=== PATIENT | female | born 1995 | race Caucasian/White ===

== ENCOUNTER → 2016-09-03 | Outpatient (CLI) | payer OTHER | END | disposition home or self-care (01) | LOC: C.PAPS 08:45 | PROVIDERS: ATTEND Obstetrics & Gynecology | DX: Z12.4 Encounter for screening for malignant neoplasm of cervix (principal) ==

== ENCOUNTER → 2016-09-03 | Outpatient (CLI) | payer OTHER ==
[2016-09-03 16:33] LABS: BASO % 0.2 %; BASO ABS # 0.02 K/uL (0-0.2); COMPLETE YES; EOS % 0.5 %; HEMATOCRIT 39.7 % (37-47); IG% 0.3 %; LYMPH % 21.1 %; LYMPH ABS # 2.09 K/uL (1.2-3.4); MEAN CELL VOLUME 85.6 fL (80-100); MEAN CORPUSCULAR HEMOGLOBIN 28.9 pg (25-34); MEAN CORPUSCULAR HGB CONC 33.8 g/dl (32-36); MEAN PLATELET VOLUME 9.7 fL (7.4-10.4); MONO % 4.9 %; PLATELET COUNT 274 K/uL (130-400); RED BLOOD COUNT 4.64 M/uL (4.2-5.4); WHITE BLOOD COUNT 9.91 K/uL (4.8-10.8)
[2016-09-03 18:11] LABS: URINE APPEARANCE CLEAR (CLEAR); URINE BILIRUBIN NEG (NEG); URINE COLOR YELLOW; URINE EPITHELIAL CELL AUTO >30 /lpf (0-5); URINE NITRITE NEG (NEG); URINE PH 6.5 (4.5-7.5); UROBILINOGEN NEG (NEG)
[2016-09-03 18:14] LABS: MANUAL MICROSCOPIC REQUIRED? NO; REVIEW REQ? NO
[2016-09-06 08:33] LABS: CHLAMYDIA TRACH RNA*** NOT DETECTED (NOT DETECTED); GC (NEIS GONORRHOEAE)RNA** NOT DETECTED (NOT DETECTED)
== END | disposition home or self-care (01) ==
LOC: C.LAB1850 15:24
PROVIDERS: ATTEND Obstetrics & Gynecology
DX: Z34.00 Encounter for supervision of normal first pregnancy, unspecified trimester (principal)

== ENCOUNTER → 2016-10-07 | Outpatient (CLI) | payer OTHER ==
[2016-10-07 18:32] LABS: GTGD 50 Grams
== END | disposition home or self-care (01) ==
LOC: C.LAB 17:22
PROVIDERS: ATTEND Obstetrics & Gynecology
DX: Z34.02 Encounter for supervision of normal first pregnancy, second trimester (principal)

== ENCOUNTER → 2016-10-20 | Outpatient (CLI) | payer OTHER | END | disposition home or self-care (01) | LOC: C.LABPVFM 15:05 | PROVIDERS: ATTEND Family Medicine | DX: J02.9 Acute pharyngitis, unspecified (principal) ==

== ENCOUNTER → 2017-01-04 | Outpatient (CLI) | payer OTHER ==
[2017-01-04 13:23] LABS: HEMATOCRIT 38.3 % (37-47)
[2017-01-04 14:28] LABS: URINE APPEARANCE CLOUDY (CLEAR); URINE BILIRUBIN NEG (NEG); URINE COLOR YELLOW; URINE EPITHELIAL CELL AUTO >30 /lpf (0-5); URINE NITRITE NEG (NEG); URINE PH 8.5 (4.5-7.5); URINE SPECIFIC GRAVITY 1.015 (1.000-1.030); UROBILINOGEN NEG (NEG)
[2017-01-04 14:31] LABS: MANUAL MICROSCOPIC REQUIRED? NO; REVIEW REQ? YES
[2017-01-04 15:14] LABS: GTGD 50 Grams
== END | disposition home or self-care (01) ==
LOC: C.LAB1850 11:36
PROVIDERS: ATTEND Obstetrics & Gynecology
DX: Z34.02 Encounter for supervision of normal first pregnancy, second trimester (principal)

== ENCOUNTER → 2017-03-03 | Outpatient (CLI) | payer OTHER | END | disposition home or self-care (01) | LOC: C.LABSPEC 16:14 | PROVIDERS: ATTEND Obstetrics & Gynecology | DX: Z34.03 Encounter for supervision of normal first pregnancy, third trimester (principal) ==

== ENCOUNTER 2017-03-28 00:19 | Inpatient (IN) | payer OTHER ==
[~2017-03-28] VITALS: Ht 170.2 cm; Wt 99.1 kg
[2017-03-28] MEDS ORDERED: LACTATED RINGER'S 1000ML 1,000 ML IV PRN (03:36)
[2017-03-28] MEDS ORDERED: LACTATED RINGER'S 1000ML 1,000 ML IV SCH (03:36)
[2017-03-28] MEDS ORDERED: PENICILLIN G POTASSIUM IV 6 MU in DEXTROSE 5% 250ML 250 ML IV ONE (03:45)
[2017-03-28] MEDS ORDERED: PENICILLIN G POTASSIUM IV 3 MU in DEXTROSE 5% 100ML 100 ML IV PRN (03:45)
[2017-03-28 04:15] LABS: HEMATOCRIT 38.1 % (37-47); MEAN CELL VOLUME 89.4 fL (80-100); MEAN CORPUSCULAR HEMOGLOBIN 31.2 pg (25-34); MEAN CORPUSCULAR HGB CONC 34.9 g/dl (32-36); MEAN PLATELET VOLUME 10.1 fL (7.4-10.4); PLATELET COUNT 233 K/uL (130-400); RED BLOOD COUNT 4.26 M/uL (4.2-5.4); WHITE BLOOD COUNT 13.57 K/uL (4.8-10.8)
[2017-03-28] MEDS ORDERED: PRENTAB26 PO (04:15)
[2017-03-28] MEDS ORDERED: BUPIVACAINE 0.25% 30 ML VIAL ONE (04:17)
[2017-03-28] MEDS ORDERED: EpHEDrine SULFATE INJ 50 MG/ML AMP ONE (04:17)
[2017-03-28] MEDS ORDERED: FENTANYL 2MCG/ML ROPIV 1.25MG/ML 100ML BAG EPI ONE (04:18)
[2017-03-28] MEDS ORDERED: FENTANYL CITRATE INJ 50 MCG/1 ML 2 ML VIAL ONE (04:18)
[2017-03-28] MEDS ORDERED: LACTATED RINGER'S 1000ML 500 ML IV PRN (04:34)
[2017-03-28] MEDS ORDERED: NALOXONE HCL INJ 1 MG in SODIUM CHLORIDE 0.9% 1000ML 1,000 ML IV PRN (04:34)
[2017-03-28] MEDS ORDERED: FENTANYL 2MCG/ML ROPIV 1.25MG/ML 100ML BAG EPI PRN (04:45)
[2017-03-28] MEDS ORDERED: ONDANSETRON INJ 2 MG/ML 2 ML VIAL IV PRN (04:45)
[2017-03-28] MEDS ORDERED: DiphenhydrAMINE HCL 50 MG/ML VIAL IV PRN (04:45)
[2017-03-28] MEDS ORDERED: NALBUPHINE HCL INJ 10 MG/ML AMP IV PRN (04:45)
[2017-03-28] MEDS ORDERED: NALOXONE HCL INJ 0.4 MG/1 ML VIAL/CARP IV PRN (04:45)
[2017-03-28] MEDS ORDERED: PROMETHAZINE HCL INJ 25 MG in SODIUM CHLORIDE 0.9% 50ML 50 ML IV PRN (04:45)
[2017-03-28] MEDS ORDERED: EpHEDrine SULFATE INJ 50 MG/ML AMP IV PRN (04:45)
[2017-03-28 05:29] VITALS: Ht 170.2 cm; Wt 99.1 kg
[2017-03-28] MEDS ORDERED: CALC500C3 (06:08)
[2017-03-28] MEDS ORDERED: OXYTOCIN 30 UNITS/500ML NSS IV ONE (09:12)
[2017-03-28] MEDS ORDERED: ACETAMINOPHEN 325 MG TAB PO PRN (09:45)
[2017-03-28] MEDS ORDERED: LANOLIN OINT EXT PRN ×2 (09:45)
[2017-03-28] MEDS ORDERED: OXYTOCIN 30 UNITS/500ML NSS IV PRN (09:45)
[2017-03-28] MEDS ORDERED: OXYCODONE/ACETAMINOPHEN 5-325 TAB PO PRN (09:45)
[2017-03-28] MEDS ORDERED: BENZOCAINE 20% AER SPR 82.5 GM CAN EXT PRN (09:45)
[2017-03-28] MEDS ORDERED: SUPERCREAM 0.870 % 15GM JAR EXT PRN (09:45)
--- NOTE | 2017-03-28 09:54 | Anesthesia Procedure Note ---
Anesthesia Epidural Removal Nt Date & Time Mar 28, 2017 at 09:54 Vital Signs Pain Intensity: 0.0 Notes Mental Status: alert / awake / arousable, participated in evaluation Nausea / Vomiting: adequately controlled Pain: adequately controlled Airway Patency, RR, SpO2: stable & adequate BP & HR: stable & adequate Hydration State: stable & adequate Neuraxial Anesthesia: was administered Anesthetic Complications: no major complications apparent, pt satisfied with anesthetic care Epidural: removed without complications, with tip intact
--- NOTE | 2017-03-28 13:51 | DELIVERY SUMMARY ---
DATE OF OPERATION: 03/28/2017 TopofForm The patient is a 21-year-old 1 para 0 white female, EDC of 03/25/2017 who presented in active labor. She progressed to full dilation and at that point membranes were ruptured for clear fluid. Thin meconium was noted when she started to push. She pushed effectively through several contractions for delivery of a viable male . Mouth and nasopharynx were suctioned on the perineum and the rest of the infant delivered easily and was placed on the mother's abdomen. There was vigorous cry and the infant was moving all 4 limbs. The cord was then clamped after approximately 30 seconds. Placenta was expressed intact with a 3-vessel cord. A first degree vaginal laceration and a first degree right labial laceration were repaired with 3-0 chromic in usual fashion. A left labial abrasion was not bleeding and therefore not repaired. Estimated blood loss was 300 mL. Mother and were doing well after delivery.BottomofForm I attest to the content of the Intraoperative Record and any orders documented therein. Any exceptions are noted below. MTDD
[2017-03-28 14:42] VITALS: BP 118/59; PULSE 60; TEMP 36.8
[2017-03-28 15:15] VITALS: BP 111/73; PULSE 50; TEMP 36.9
[2017-03-28 19:24] VITALS: BP 136/83; PULSE 65; TEMP 36.5
[2017-03-28] MEDS: DOCUSATE SODIUM 100 MG CAP PO SCH (19:41)
[2017-03-28 23:10] VITALS: BP 117/69; PULSE 63; TEMP 36.7; O2SAT 98
[2017-03-29 03:55] VITALS: BP 119/72; PULSE 57; TEMP 36.7; O2SAT 98
[2017-03-29 06:47] LABS: HEMATOCRIT 33.7 % (37-47)
[2017-03-29 07:18] VITALS: BP 123/75; PULSE 60; TEMP 36.6; O2SAT 97
--- NOTE | 2017-03-29 07:48 | Progress Note ---
Subjective Mar 29, 2017. Subjective conversation w/ patient, physical exam Ambulation: ambulating normally Voiding: no voiding problems Passing Gas: Yes Diet Tolerance: Regular Diet Lochia: Moderate Feeding Type: Breast Feeding Review of Systems Constitutional: No fever, No chills, No sweats, No weight loss, No weakness, No fatigue, No problem reported Female : No see HPI, No dysuria, No urinary frequency, No hematuria, No incontinence, No abnormal vaginal bleeding, No vaginal discharge, No problem reported Objective Vital Signs Date Time Temp Pulse Resp B/P (MAP) Pulse Ox O2 Delivery O2 Flow Rate FiO2 03/29/17 07:18 36.6 60 20 123/75 (91) 97 Room Air 03/29/17 03:55 36.7 57 18 119/72 (88) 98 Room Air 03/28/17 23:10 36.7 63 18 117/69 (85) 98 Room Air 03/28/17 23:10 98 Room Air 03/28/17 19:24 36.5 65 18 136/83 (100) Room Air 03/28/17 15:15 36.9 50 20 111/73 (86) Room Air 03/28/17 15:15 Room Air 03/28/17 14:42 36.8 60 20 118/59 (78) Physical Exam General Appearance: WELL-APPEARING, NO APPARENT DISTRESS Abdomen: non tender, soft Fundus: Firm, Non-Tender, Relation to Umbilicus (1 below U) Extremities: no calf tenderness Laboratory Results Last 24 Hours Test 03/29/17 06:07 Hemoglobin 11.5 g/dL Hematocrit 33.7 % Assessment and Plan Day#: 1 Continue Routine Care: stable course GBS(+) continue current care plan
[2017-03-29] MEDS: DOCUSATE SODIUM 100 MG CAP PO SCH ×2 (07:52→19:37)
[2017-03-29] MEDS: PRENATAL VITAMIN TAB PO SCH (07:53)
[2017-03-29] MEDS: IBUPROFEN 600 MG TAB PO PRN ×2 (14:02→23:19)
[2017-03-29 15:35] VITALS: BP 111/73; PULSE 56; TEMP 36.7
[2017-03-29] MEDS ORDERED: BISACODYL 5 MG TABEC PO SCH (20:00)
[2017-03-29 23:15] VITALS: BP 119/72; PULSE 56; TEMP 36.8
--- NOTE | 2017-03-30 06:54 | OB/GYN Progress Note ---
[facility] Progress Note Date of Service Mar 30, 2017. Subjective conversation w/ patient, physical exam, chart review, lab review Ambulation: ambulating normally Voiding: no voiding problems Passing Gas: Yes Diet Tolerance: Regular Diet Lochia: Moderate Feeding Type: Breast Feeding Review of Systems Constitutional: No fever, No chills, No sweats Respiratory: No cough, No sputum, No wheezing, No shortness of breath, No dyspnea on exertion Cardiac: No chest pain, No edema, No palpitations Abdomen: No pain, No nausea, No vomiting, No diarrhea Female : No dysuria, No urinary frequency Objective Vital Signs Date Time Temp Pulse Resp B/P (MAP) Pulse Ox O2 Delivery O2 Flow Rate FiO2 03/29/17 23:15 36.8 56 16 119/72 (88) Room Air 03/29/17 23:15 Room Air 03/29/17 15:35 Room Air 03/29/17 15:35 36.7 56 16 111/73 (86) Room Air 03/29/17 07:55 Room Air 03/29/17 07:18 36.6 60 20 123/75 (91) 97 Room Air Physical Exam General Appearance: WELL-APPEARING, WD/WN, NO APPARENT DISTRESS Respiratory/Chest: chest non-tender, lungs clear, normal breath sounds, no respiratory distress, no accessory muscle use Cardiovascular: regular rate, rhythm, no edema, no murmur Abdomen: non tender, soft Fundus: Firm Extremities: no pedal edema, no calf tenderness Medications Current Inpatient Medications Medications (Trade) Dose Ordered Sig/Mike Route Start Time Stop Time Status Last Admin Dose Admin Lactated Ringer's 1,000 ml @ 999 mls/hr Q1H1M PRN IV 03/28/17 03:36 04/27/17 03:35 03/28/17 04:02 999 MLS/HR Oxytocin (Pitocin IV) 30 units UD PRN IV 03/28/17 09:45 04/27/17 09:44 Benzocaine (Dermoplast Aero Spr) 1 appln PRN PRN EXT 03/28/17 09:45 04/27/17 09:44 03/28/17 23:27 1 APPLN Cocaine HCl (Supercream 0.870% Cr) BID PRN EXT 03/28/17 09:45 04/11/17 09:44 Lanolin (Lanolin Oint) PRN PRN EXT 03/28/17 09:45 04/27/17 09:44 Prenat Multivit/ [place]/Iron/Folic Ac ( Vitamin Tab) 1 tab DAILY PO 03/29/17 08:00 04/28/17 07:59 03/29/17 07:53 1 TAB Ibuprofen (Motrin Tab) 600 mg Q4H PRN PO 03/28/17 09:45 04/27/17 09:44 03/29/17 23:19 600 MG Acetaminophen (Tylenol Tab) 650 mg Q6H PRN PO 03/28/17 09:45 04/27/17 09:44 Oxycodone/ Acetaminophen (Percocet 5-325mg Tab) 1 tab Q4H PRN PO 03/28/17 09:45 04/11/17 09:44 Docusate Sodium (coLACE CAP) 100 mg BID PO 03/28/17 20:00 04/27/17 19:59 03/29/17 19:37 100 MG Assessment and Plan Continue Routine Care: 21 female now 1 delivered vaginally on 03/28. GBS+/A+/RI. Vitals reviewed and WNL. Hbg 13.3 on 03/28 at admission. 11.5 on 03/29/ No signs or symptoms of anemia. Patient doing well clinically. Continue routine pp care, monitor lochia , control pain with Tylenol/ibuprofen, encourage ambulation, support. Resident Physician Supervision Note: I interviewed and examined the patient. Discussed with Dr. Mera and agree with findings and plan as documented in the note. Any exceptions or clarifications are listed here: Patient ready for d/c. Instructions given, f/u in 6 weeks for pp check Documented By: Cristian Rios
[2017-03-30] MEDS: DOCUSATE SODIUM 100 MG CAP PO SCH (07:25)
[2017-03-30] MEDS: PRENATAL VITAMIN TAB PO SCH (07:25)
[2017-03-30] MEDS: IBUPROFEN 600 MG TAB PO PRN (07:26)
[2017-03-30 07:30] VITALS: BP 126/77; PULSE 65; TEMP 36.8; O2SAT 99
--- NOTE | 2017-03-30 07:40 | Discharge Instructions ---
Discharge Instructions Date of Service Mar 30, 2017. Admission Reason for Admission: LABOR Discharge Discharge Diagnosis / Problem: same Discharge Goals Goal(s): Routine recovery after delivery Medications Continue Dispensed Medications: supercream, dermaplast Activity Recommendations Activity Limitations: as noted below . Instructions / Follow-Up Instructions / Follow-Up ACTIVITY RECOMMENDATIONS: * Gradual return to full activity over the next 2-3 weeks. * No lifting - nothing heavier than baby over the next 2-3 weeks. * Do not engage in vigorous exercise, sexual activity or sports until cleared by your physician. * Do not drive or operate any motorized equipment until cleared by your physician. * You may shower/bathe daily. MEDICATIONS: For discomfort or pain, you may use Acetaminophen (Tylenol), Ibuprofen (Advil), or Naproxen (Aleve) following the package directions. For constipation you may use Colace following the package directions. BREAST CARE: If you are not breast feeding: * Wear a supportive bra 24 hours a day for one to two weeks. * Avoid stimulating your breasts and nipples as much as possible during the first few weeks after delivery. * When taking a shower, have the warm water hit your back, not breasts. * When your breasts feel full, apply ice packs. Usually three to four times a day helps ease the discomfort. * Take a mild pain medication (Tylenol / Motrin) when you are uncomfortable. If breast feeding: * Use breast milk to lubricate nipples. Lansinoh cream may be used for sore nipples. You do not need to remove cream prior to breast feeding. If using a different brand of cream, check the label for directions regarding removal of cream prior to nursing. * Wear a supportive bra. * If having problems with breasts or breast feeding, call a hearing aid consultant or your health care provider. EPISIOTOMY CARE: After delivery, if you have an episiotomy (stitches), the following steps will ease discomfort and aid healing. * For the first 24 hours after delivery, place ice packs next to your episiotomy to help reduce swelling. * After the first 24 hour-period, sitz baths, either portable or in the tub, are suggested. A shower with a shower arm sprayed over the episiotomy may be comforting. * Maria D care should be done after each voiding and bowel movement. Squirt warm water from a plastic bottle over the perineum (region of the body between the anus and urinary opening) and pat dry. * Use Dermoplast to ease discomfort. Shake container. [place] directly over the episiotomy. Place a Tucks on a clean sanitary pad next to your episiotomy. SPECIAL CARE INSTRUCTIONS: When you are discharged from the hospital, it is important for you to follow the instructions listed below: * During the first week at home, you should be able to care for yourself and your baby. In addition, the usual light household activities are encouraged. * Limit your activities to the way you feel. Do not try to clean the house or move furniture. Be sensible. * If you actively engage in sports and have done so up until the time of your delivery, you may resume these activities as soon as you feel able. This may take up to one month or even longer. Use good judgment. * Continue to take your vitamins for at least six weeks after the of your baby. * Your diet need not be limited unless you were on a special diet before your delivery. Breast-feeding mothers need around 2500 calories per day and at least 64-80 ounces of fluid per day (8 to 10 glasses). * You should eat foods from the four major food groups. Crash diets or fad diets are to be avoided. Eating lean meats, fresh fruits and vegetables, low-fat dairy products, high fiber foods and a regular exercise program, will help you get back to your pre- weight without putting your health at risk. * Constipation is sometimes a problem after delivery. Take a mild laxative as needed. If breast feeding, Milk of Magnesia is acceptable to use. You may use a suppository or Fleets enema if no episiotomy. * A daily shower or tub bath is suggested. Be sure to thoroughly and gently dry the perineum. * A bloody vaginal discharge will usually continue until around four weeks post . A small amount of bleeding may continue for as long as six weeks. Vaginal discharge changes from the bright red bleeding after delivery to pink then brownish and finally yellowish-pink before becoming white and disappearing. * Bleeding may increase with activity. Your first period may come in 4-8 weeks. If you are breast feeding, your period may be delayed even longer. * [place] (sex) can begin whenever both you and your partner feel comfortable and do not have any form of genital infection. It is recommended that you wait at least six weeks for internal and external healing to occur. If you have questions, please talk to your health care practitioner. A condom should be used to prevent infection and . * Foreplay, gentle intercourse and lubrication is very important the first several times to prevent pain. A water-based lubricant such as K-Y jelly or Astroglide may be used. * If you have RH negative blood and your baby is RH positive, you will receive RHOGAM by injection prior to discharge. The nurse will give you a card to keep with you that has the date and place that you received RHOGAM after delivery. * During your care, you had a Rubella screen done to check for the presence of rubella antibodies in your blood. If your test was negative, you will receive a Rubella vaccine prior to discharge. This vaccine may cause a fever, soreness at the injection site and flu-like symptoms. If these symptoms persist, notify your health care practitioner. is not advised for one month after a Rubella vaccine. * Verbalizes understanding of car seat law as reviewed with patient nursing. * Car Seat hand-out given and reviewed with patient by nursing. * Shaken baby information reviewed with patient by nursing. Call you doctor if: * Heavy bleeding (saturating several pads an hour) or passing clots the size of your fist. * A fever >101 degrees F (38.3 degrees C) on two occasions four hours apart and /or chills. * Unusual pain in the pelvic or vaginal areas. * "Baby Blues" lasting longer than two weeks. If you have any questions or concerns, call your health care practitioner at . FOLLOW UP VISIT: * Please call the office at to schedule a 6 week examination. It is important you keep this appointment. It is important for you to make arrangements for either yearly or twice yearly check-ups thereafter. Current Hospital Diet Patient's current hospital diet: Regular OB Diet Discharge Diet Recommended Diet: Regular OB Diet Pending Studies Studies pending at discharge: no Medical Emergencies . Who to Call and When: Medical Emergencies: If at any time you feel your situation is an emergency, please call 911 immediately. . Non-Emergent Contact Non-Emergency issues call your: Furnace Charging Machine Operator Call Non-Emergent contact if: you have a fever, temperature is above 100.5 . . "Provider Documentation" section prepared by Cristian Rios. . VTE Core Measure Inpt VTE Proph given/why not?: Treatment not indicated
[2017-03-30 10:45] VITALS: BP_DIAS 77; PULSE 65; TEMP 36.8
== END 2017-03-30 10:45 | disposition home or self-care (01) | DRG 775 ==
LOC: C.LD 00:19 → C.OPB 00:19 → C.LD 03:38 → C.OPB 03:38 → C.OBG 14:44
PROVIDERS: ADMIT Obstetrics & Gynecology; ATTEND Obstetrics & Gynecology
PROC: 0HQ9XZZ Repair Perineum Skin, External Approach (ICD-10-PCS; principal; 2017-03-28)
PROC: 10E0XZZ Delivery of Products of Conception, External Approach (ICD-10-PCS; principal; 2017-03-28)
DX: O70.0 First degree perineal laceration during delivery (principal); Z37.0 Single live birth; O77.0 Labor and delivery complicated by meconium in amniotic fluid; Z3A.40 40 weeks gestation of pregnancy; O99.824 Streptococcus B carrier state complicating childbirth

== ENCOUNTER 2019-08-01 07:26 | Inpatient (IN) ==
[2019-08-01] MEDS ORDERED: PENICILLIN G POTASSIUM 3 MU in DEXTROSE 5% 100 ML IV PRN (08:54)
[2019-08-01] MEDS ORDERED: OXYTOCIN 30 UNITS/500 ML BAG IV PRN ×3 (08:54→16:23)
[2019-08-01] MEDS ORDERED: PENICILLIN G POTASSIUM 6 MU in DEXTROSE 5% 250 ML IV STA (08:56)
[2019-08-01] MEDS: LACTATED RINGER'S 1,000 ML IV PRN ×2 (09:14→15:12)
[2019-08-01 09:16] LABS: Hematocrit (blood only) 33.5 % (37-47); Mean Corpuscular Hemoglobin 27.7 pg (25-34); Mean Corpuscular Volume 84.4 fL (80-100); Mean Platelet Volume 9.7 fL (7.4-10.4); Platelet Count 267 K/uL (130-400); RDW Coefficient of Variation 12.9 % (11.5-14.5); RDW Standard Deviation 39.3 fL (36.4-46.3); Red Blood Count 3.97 M/uL (4.2-5.4); White Blood Count 9.37 K/uL (4.8-10.8)
[2019-08-01 09:18] LABS: Mean Corpuscular Hgb Conc 32.8 g/dL (32-36)
--- NOTE | 2019-08-01 09:36 | History & Physical Report ---
Date of Service August 01, 2019 Assessment & Plan (1) Prolonged , antepartum: (2) Rubella non-immune status, antepartum: (3) GBS carrier: admit, iv, labs. pitocin induction, pcn for gbs pos. plan mmr pp. pt and partner deny questions. History of Present Illness Chief Complaint: postdates induction Primary Care Provider: NO PCP 24yo at 42 +wks ega with edc 07/23/19 presents to L&D for planned postdates induction. Denies rom, vb. +FM. No regular ctx. PNC c/b 1. GBS pos, plan pcn 2. rubella non immune, plan mmr pp PNL rh pos, r non immune, gbs pos Current Active Problems Problem Status Onset Prolonged , antepartum Rubella non-immune status, antepartum GBS carrier Depression with anxiety Supervision of normal intrauterine in multigravida Allergies Allergy/AdvReac Type Severity Reaction Status Date / Time No Known Drug Allergies Allergy Unknown Verified 08/01/19 08:04 Home Medications Home Medications Medication Instructions Recorded Confirmed Type vit-iron fum-folic ac 1 tab PO DAILY 08/01/19 08/01/19 History [ Vitamin] Patient History Family History (Updated 12/29/18 @ 13:04 by Heather Martinez) Family/Other Breast cancer Cervical cancer Mother Ovarian cyst Aunt Ovarian cyst Multiple gestation Social History (Updated 12/29/18 @ 13:06 by Heather Martinez) Preferred Language: Bulgarian Communication Ability: Effective Beliefs That Will Affect Care: None marital status: Single marital status details: Abelardo Felton (34) [phone] Current Living Situation: Family Current Living Situation Comment: dog current occupational status: employed 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 [employer] Other Information That Helps Us Care for You: No Feels Safe at Home: Yes Safety Concerns: Feels Safe At This Time Smoking Status: Former smoker Hx Alcohol Use: No Hx Substance Use: No Review of Systems no fever no change in stools no dysuria and no abnormal vaginal bleeding Physical Exam Constitutional: WD/WN, vitals as above Respiratory: normal respiratory effort, lungs clear to auscultation Cardiovascular: Rate/Rhythm: regular rate and regular rhythm Gastrointestinal (Abdomen): Percussion/Palpation: abdomen soft (gravid); abdomen nontender Musculoskeletal: no edema Neurologic: grossly normal Psychiatric: A+Ox3, euthymic affect Genitourinary: OB Exam Abdomen: + estimated weight (7-8#) Manual OB Exam: + cervical dilation (3), + cervical effacement 50% and + station -2 OB Exam Monitor Tracing: + external FHT monitor used (130 mod variability), + external uterine monitor used (irreg), + category I and + normal FHT variability Results & Data Vital Signs (Past 12 Hours) Vital Signs Temp Pulse Resp BP 08/01/19 07:37 98.4 F 113 H 20 119/80 08/01/19 07:35 113 H 119/80 Coding Level of Care Code None Diagnoses Prolonged , antepartum O48.1 Rubella non-immune status, antepartum O99.89; Z28.3 GBS carrier Z22.330
--- NOTE | 2019-08-01 14:06 | Labor Progress Brief Note ---
Date of Service August 01, 2019 Subjective Reason For Note: Routine Evaluation pt doing well. denies significant pain Assessment & Plan (1) Prolonged , antepartum: (2) Rubella non-immune status, antepartum: (3) GBS carrier: will see if arom helps her labor. c/w pit. c/w pcn. Physical Exam Constitutional: WD/WN, vitals as above Psychiatric: A+Ox3, euthymic affect Genitourinary: Manual OB Exam: + cervical dilation 3 cm, + cervical effacement 60%, + station -2 and + amniotic fluid (arom ) clear OB Exam Monitor Tracing: + external FHT monitor used (130 mod variability, reactive), + external uterine monitor used (q3), + category I and + normal FHT variability pit at 15 Results & Data Vital Signs (Past 12 Hours) Vital Signs Temp Pulse Resp BP 08/01/19 14:00 59 L 115/57 L 08/01/19 13:59 18 08/01/19 13:27 69 107/58 L 08/01/19 11:33 98.4 F 66 16 103/65 08/01/19 10:37 71 106/58 L 08/01/19 10:36 16 08/01/19 07:37 98.4 F 113 H 20 119/80 08/01/19 07:35 113 H 119/80 Coding Level of Care Code None Diagnoses Prolonged , antepartum O48.1 Rubella non-immune status, antepartum O99.89; Z28.3 GBS carrier Z22.330
[2019-08-01] MEDS ORDERED: BUPIVACAINE 0.25% 30 ML VIAL ONE (14:42)
[2019-08-01] MEDS ORDERED: ePHEDrine sulfate 50 MG/ML AMP ONE (14:42)
[2019-08-01] MEDS ORDERED: fentaNYL citrate 100 MCG/2 ML VIAL ONE (14:42)
[2019-08-01] MEDS ORDERED: fentaNYL 2MCG/ML ROPIV 1.25MG/ML 100 ML BAG EPI ONE (14:43)
--- NOTE | 2019-08-01 14:53 | Anesthesiology Consultation ---
Date of Service August 01, 2019 Assessment & Plan Chart Review Chart Review: Acceptable Risk for Labor Epidural Consults Requested none ASA ASA2 Proposed Anesthesia Anesthesia Type: Labor Epidural Risk / Benefits Reviewed With: PT / POA / Parent / Guardian, Accepts Plan and Informed Consent Obtained History Height/Weight Height: 5 ft 7 in Weight: 104.326 kg Allergies Allergy/AdvReac Type Severity Reaction Status Date / Time No Known Drug Allergies Allergy Unknown Verified 08/01/19 08:04 Medications Home Medications Medication Instructions Recorded Confirmed Last Taken vit-iron fum-folic ac 1 tab PO DAILY 08/01/19 08/01/19 07/31/19 08:00 [ Vitamin] Active Medications Generic Name Dose Route Start Last Admin Trade Name Freq PRN Reason Stop Dose Admin Lactated Ringer's 1,000 mls @ 125 mls/hr 08/01/19 08:54 08/01/19 14:39 Lr IV 08/03/19 08:53 999 mls/hr .Q8H PRN Infusion L&D Protocol Protocol Penicillin G Potassium 3 mu/ 106 mls @ 100 mls/hr 08/01/19 08:54 08/01/19 14:39 Dextrose IV 08/11/19 08:53 Infused Q4H PRN Infusion Give until delivery Oxytocin 30 units in 500 mls @ 17 mls/hr 08/01/19 08:54 08/01/19 14:01 Pitocin IV 08/03/19 08:53 1.02 units/hr .Q24H PRN 17 mls/hr Labor Induction/Augmentation Titration Protocol 1.02 UNITS/HR NPO Date Last Intake of Fluids: 08/01/19 Time Last Intake of Fluids: 13:00 Date Last Intake of Solids: 07/31/19 Time Last Intake of Solids: 19:00 Past Medical History Medical History Gastritis (Inactive) Nausea (Inactive) Ovarian cyst Varicella Exercise / Class Metabolic Activity II 4-5 Yardwork/Stairs/Walk up hill Past Family History Family History Family/Other Breast cancer Cervical cancer Mother Ovarian cyst Aunt Ovarian cyst Multiple gestation Past Surgical History Surgical History No significant past surgical history Past Anesthesia History No Hx of Anesthesia Complications and No Family Hx of Anesthesia Complications History of PONV No Hx of PONV and No Hx of Motion Sickness Social History Smoking Status: Former smoker Hx Alcohol Use: No Hx Substance Use: No substance use type: does not use Physical Exam Vital Signs Last Vital Signs Temp 36.9 C 08/01/19 11:33 Pulse 59 L 08/01/19 14:00 Resp 18 08/01/19 13:59 BP 115/57 L 08/01/19 14:00 ENMT Mouth: no TMJ abnormality Thyromental Distance: > or= 3.5 Finger Breadths Mallampati Class: II Neck normal visual inspection and trachea midline; neck extension not limited Respiratory normal respiratory effort Auscultation: lungs clear to auscultation bilaterally Cardiovascular Rate/Rhythm: regular rate and regular rhythm Heart Sounds: no murmur Musculoskeletal Spine: normal cervical ROM Extremities: full ROM of extremities Neurologic moves all extremities Psychiatric Orientation: alert and oriented x 3 Testing Laboratory Results 08/01/19 09:04
[2019-08-01] MEDS ORDERED: fentaNYL 2MCG/ML ROPIV 1.25MG/ML 100 ML BAG EPI PRN (15:11)
[2019-08-01] MEDS ORDERED: NALOXONE HCL 0.4 MG/1 ML VIAL/CARP IV PRN (15:11)
[2019-08-01] MEDS ORDERED: PROMETHAZINE HCL 25 MG in SODIUM CHLORIDE 0.9% 50 ML IV PRN (15:11)
[2019-08-01] MEDS ORDERED: NALOXONE HCL 1 MG in SODIUM CHLORIDE 0.9% 1000ML 1,000 ML IV PRN (15:11)
[2019-08-01] MEDS ORDERED: ONDANSETRON INJ 2 MG/ML 2 ML VIAL IV PRN (15:11)
[2019-08-01] MEDS ORDERED: NALBUPHINE HCL INJ 10 MG/ML AMP IV PRN (15:11)
[2019-08-01] MEDS ORDERED: METOCLOPRAMIDE HCL 20 MG in SODIUM CHLORIDE 0.9% 50 ML IV PRN (15:11)
[2019-08-01] MEDS ORDERED: ePHEDrine sulfate 50 MG/ML AMP IV PRN (15:11)
[2019-08-01] MEDS ORDERED: DiphenhydrAMINE HCL 50 MG/ML VIAL IV PRN (15:11)
--- NOTE | 2019-08-01 16:13 | Delivery Summary ---
Vaginal Delivery Summary Date of Service August 01, 2019 The patient dilated to complete and pushed to deliver a viable female infant Apgars 8 and 9 via over small 2nd degree perineal laceration. Mouth and nose bulb suctioned at perineum. Shoulders and body delivered with ease. was vigorous and crying at . Cord clamped at 30 seconds of life and infant to maternal abdomen where the cord was then doubly clamped and cut. Placenta delivered spontaneously and intact, three-vessel cord. Hemostasis achieved with dilute pitocin and uterine massage and drainage of the bladder for approximately 150 cc under sterile conditions. Cervix and sulci intact. Laceration repaired in usual fashion with 3-0 vicryl. EBL 300 cc. Mother and baby stable recovery. [facility] Vaginal Delivery Charge Vaginal Delivery Codes: 12049 global code for the antepartum, delivery, and post-
[2019-08-01] MEDS ORDERED: SUPERCREAM 0.870% 15 GM JAR EXT PRN (16:23)
[2019-08-01] MEDS ORDERED: OXYTOCIN 20 UNITS in LACTATED RINGER'S 1,000 ML IV SCH (16:23)
[2019-08-01] MEDS ORDERED: BENZOCAINE 20% AER SPR 82.5 GM CAN EXT PRN (16:23)
[2019-08-01] MEDS ORDERED: ACETAMINOPHEN 325 MG TAB PO PRN (16:23)
[2019-08-01] MEDS ORDERED: HYDROCORTISONE ACETATE 25 MG SUPP PR PRN (16:23)
[2019-08-01] MEDS ORDERED: DIPHTHERIA/TETANUS/PERTUSSIS 0.5 ML SYR/VIAL IM ONE (16:23)
[2019-08-01] MEDS ORDERED: OXYCODONE/ACETAMINOPHEN 5mg/325mg TAB PO PRN (16:23)
--- NOTE | 2019-08-01 16:47 | Anesthesia Procedure Note ---
Date of Service August 01, 2019 Anesthesia Post Epidural Note Vital Signs Vital Signs: Temp Pulse Resp BP Pulse Ox 36.5 C 88 16 108/55 L 98 08/01/19 15:26 08/01/19 16:42 08/01/19 15:26 08/01/19 16:42 08/01/19 16:14 Notes Mental Status: alert / awake / arousable and participated in evaluation Nausea / Vomiting: adequately controlled Pain: adequately controlled Airway Patency, RR, SpO2: stable & adequate BP & HR: stable & adequate Hydration State: stable & adequate Neuraxial Anesthesia: was administered and sensory block is resolving Anesthetic Complications: no major complications apparent and Pt Satisfied with anesthetic care Epidural: Removed without complications and With tip intact
[2019-08-01] MEDS: DOCUSATE SODIUM 100 MG CAP PO SCH (21:12)
[2019-08-01] MEDS: IBUPROFEN 600 MG TAB PO PRN (21:21)
[2019-08-02] MEDS ORDERED: MEASLES, MUMPS & RUBELLA VIRUS VIAL SQ ONE (08:00)
--- NOTE | 2019-08-02 08:03 | Obstetrical Progress Note ---
Date of Service August 02, 2019 Assessment & Plan (1) Prolonged , antepartum: (2) Encounter for induction of labor: (3) Normal delivery at term: (4) Rubella non-immune status, antepartum: stable, routine care. mmr ordered. rh pos. . Subjective Ambulation: ambulating normally Voiding: no voiding problems Diet Tolerance:: regular diet Lochia:: Small Feeding Type:: breast feeding back sore from the bed. doing well overall. breast feeding, rh pos, mmr ordered. Physical Exam Constitutional WD/WN, vitals as above Respiratory normal respiratory effort, lungs clear to auscultation Cardiovascular Rate/Rhythm: regular rate and regular rhythm Gastrointestinal (Abdomen) Inspection/Auscultation: abdomen normal to inspection Percussion/Palpation: abdomen soft; abdomen nontender Fundus firm 2cm down Musculoskeletal nt calves tr pedal edema Neurologic grossly normal Psychiatric A+Ox3, euthymic affect Results & Data Vital Signs (Past 12 Hours) Vital Signs Temp Pulse Resp BP Pulse Ox 08/02/19 07:53 97.5 F L 81 20 101/69 98 08/02/19 03:45 97.9 F 102 H 16 114/76 99 08/01/19 23:35 98.2 F 57 L 16 116/69 98 08/01/19 21:00 98.4 F 75 18 124/60 100
[2019-08-02] MEDS: DOCUSATE SODIUM 100 MG CAP PO SCH (08:48)
[2019-08-02] MEDS: IBUPROFEN 600 MG TAB PO PRN ×3 (08:48→17:22)
[2019-08-02 13:25] VITALS: BP 105/69; PULSE 71; TEMP 97.9; O2SAT 96
== END 2019-08-02 18:25 | disposition home or self-care (01) | DRG 807 ==
LOC: 4S1 07:26 → 4S2 18:38